=== PATIENT | male | born 1950 | race Caucasian/White ===

== ENCOUNTER 2018-02-08 16:08 | Inpatient (IN) | payer MEDICARE, MEDICAID ==
[2018-02-08] VITALS (7 sets, daily range): BP systolic 122–168; BP diastolic 77–122; BMI 36.1
[~2018-02-08] VITALS: Ht 170.2 cm; Wt 99.5 kg
[2018-02-08] MEDS ORDERED: COMBIGAN OPHT DR5 ML EACH EYE (16:12)
[2018-02-08] MEDS ORDERED: BAYER CHEWABLE81 MG PO (16:12)
[2018-02-08] MEDS ORDERED: FISH OIL 1,0001 CA1 PO (16:13)
[2018-02-08] MEDS ORDERED: GLUCOTROL 5 MG T5 MG PO (16:13)
[2018-02-08] MEDS ORDERED: GLUCOPHAGE1000 MG PO (16:13)
[2018-02-08] MEDS ORDERED: VITAMIN B-121000 MCG PO (16:14)
[2018-02-08] MEDS ORDERED: DIOVAN320 MG PO (16:14)
[2018-02-08] MEDS ORDERED: ZOCOR40 MG PO (16:14)
[2018-02-08] MEDS ORDERED: MAXZIDE 75/501 TAB PO (16:14)
[2018-02-08] MEDS ORDERED: ATIVAN1 MG PO (16:15)
[2018-02-08] MEDS ORDERED: BUPROPION HCL100 M1 PO (16:15)
[2018-02-08] MEDS ORDERED: HALDOL5 MG PO (16:15)
[2018-02-08 16:44] LABS: BASOPHILS 0.1 % (0-2); EOSINOPHILS 0.7 % (0-7); HEMATOCRIT 41.8 % (42.0-54.0); HEMOGLOBIN 14.2 g/dL (13.5-17.5); IMMATURE GRANULOCYTES 0.4 % (0-5); LYMPHOCYTES 17.7 % (15-50); MCH 30.3 pg (26.0-34.0); MCV 89.1 fL (80.0-100.0); MEAN PLATELET VOLUME 9.9 fL (7.4-10.4); MONOCYTES 8.1 % (2-11); PLATELET COUNT 314 10x3/uL (130-400); RBC 4.69 10x6/uL (4.20-6.10); WBC 16.5 10x3/uL (4.8-10.8)
[2018-02-08 17:03] LABS: ANION GAP 20.9 mmol/L (8-16); APTT 24.3 SECONDS (22.8-39.4); BILIRUBIN - TOTAL 0.43 mg/dL (0.2-1.3); CALCIUM 9.7 mg/dL (8.5-10.1); CARBON DIOXIDE 20.3 mmol/L (21.0-32.0); INR 0.93 (0.85-1.17); POTASSIUM - SERUM 5.2 mmol/L (3.5-5.1)
[2018-02-08 17:11] LABS: MAGNESIUM - SERUM 1.6 mg/dL (1.8-2.4)
--- NOTE | 2018-02-08 19:29 | NUR ---
IV INFUSING WELL. IV SITE WNL.
--- NOTE | 2018-02-08 19:45 | NUR ---
ICU BED BEING CLEANED AT THIS TIME
--- NOTE | 2018-02-08 20:05 | NUR ---
REPORT CALLED TO ICU AT THIS TIME. REPORT GIVEN TO PARVIN. PT BS 182. PT ALERT AND ORIENTED. IV LEVAQUIN COMPLETED AT THIS TIME. IV FLUSHED WELL. IV SITE WNL
--- NOTE | 2018-02-08 20:40 | NUR ---
PT RECEIVED TO UNIT VIA STRETCHER FROM ER WITH ER NURSE. PT TRANSFERED TO ICU BED. PT TOLERATED WELL. PT CONNECTED TO MONITOR. O2 VIA N/C AT 2LPM WITH SPO2 98%. PT WITH SOME CONFUSION, CAN STATE NAME, BIRTHDATE, PRESIDENT, AND THAT HE WAS IN THE HOSPITAL, CONFUSED TO AGE, AND YEAR. LUNGS SOUND CLEAR THEN PT HAS A STRIDER TYPE SOUND DURING COUGH. PT DENIES DIFFICULTY BREATHING DURING THOSE EPISODES AND SPO2 STAYS 97% TO 99%. PT OBEYS COMMANDS. MAXIMAL ASSIST WITH TURNING FOR LINEN CHANGES. PT WITH EYES OPEN AT THIS TIME. WILL CONTINUE TO OBSERVE.
--- NOTE | 2018-02-08 21:26 | NUR ---
DR. ANTONY NOTIFIED OF PATIENTS DIASTOLIC BP BEING GREATER THAN 100. NOTIFIED OF BP 144/120 AT THIS TIME. 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
--- NOTE | 2018-02-08 23:14 | NUR ---
PT WITH EYES OPEN. RESPIRATORY THERAPIST AT BEDSIDE FOR BREATHING TREATMENT. NO S/S OF DISTRESS. CALL LIGHT IN REACH. WILL CONTINUE TO OBSERVE.
[2018-02-09] VITALS (24 sets, daily range): BP systolic 117–162; BP diastolic 47–124
--- NOTE | 2018-02-09 01:36 | NUR ---
PT INCONTINENT OF BLADDER WITH PERICARE PROVIDED AND BED LINENS CHANGED. PT TOLERATED WELL. CALL LIGHT IN REACH. WILL CONTINUE TO OBSERVE.
--- NOTE | 2018-02-09 03:00 | NUR ---
PT WITH EYES CLOSED AND CHEST RISING. EASILY AWOKEN. REASSESSMENT COMPLETED, SEE FLOW SHEET. WILL CONTINUE TO OBSERVE.
[2018-02-09 04:17] LABS: CARBON DIOXIDE 22.3 mmol/L (21.0-32.0); MAGNESIUM - SERUM 1.4 mg/dL (1.8-2.4)
[2018-02-09 04:20] LABS: POTASSIUM - SERUM 4.3 mmol/L (3.5-5.1)
[2018-02-09 04:23] LABS: BASOPHILS 0 % (0-2); EOSINOPHILS 0 % (0-7); HEMATOCRIT 39.6 % (42.0-54.0); HEMOGLOBIN 13.4 g/dL (13.5-17.5); IMMATURE GRANULOCYTES 0.3 % (0-5); LYMPHOCYTES 6.5 % (15-50); MCH 30.2 pg (26.0-34.0); MCHC 33.8 g/dL (31.0-37.0); MCV 89.4 fL (80.0-100.0); MEAN PLATELET VOLUME 9.7 fL (7.4-10.4); MONOCYTES 1.5 % (2-11); NEUTROPHILS 91.7 % (40-80); PLATELET COUNT 282 10x3/uL (130-400); RBC 4.43 10x6/uL (4.20-6.10); RDW 13.1 % (11.5-14.5)
--- NOTE | 2018-02-09 05:35 | NUR ---
BATH GIVEN WITH COMPLETE LINEN CHANGE. PT TOLERATED WELL. CONTINUES SEDATION AND VENT. WILL CONTINUE TO OBSERVE.
--- NOTE | 2018-02-09 05:45 | NUR ---
PT RESTING WITH EYES CLOSED AND CHEST RISING. EASILY AWOKEN. EMPTIED URINAL. CALL LIGHT IN REACH. WILL CONTINUE TO OBSERVE.
--- NOTE | 2018-02-09 06:55 | NUR ---
WAS CALLED AND INFORMED OF MAG LEVEL OF 1.4. ELECTROLYTE PROTOCOL ORDERED. WILL TREAT. CALL LIGHT IN REACH. WILL CONTINUE TO OBSERVE.
--- NOTE | 2018-02-09 11:00 | NUR ---
NO CHANGE NOTED
--- NOTE | 2018-02-09 15:00 | NUR ---
NO CHANGE NOTED
--- NOTE | 2018-02-09 19:33 | NUR ---
REPORT RECEIVED. PT WITH EYES OPEN WATCHING FOOTBALL GAME. NO COMPLAINTS OF PAIN. PT ON ROOM AIR, TOLERATING WELL. OCCASIONAL COUGH NON PRODUCTIVE. CALL LIGHT IN REACH. WILL CONTINUE TO OBSERVE.
--- NOTE | 2018-02-09 21:50 | NUR ---
PT WITH EYES CLOSED AND EASILY AWOKEN. RECEIVED MEDICATIONS PER APR. TOLERATED WELL. CALL LIGHT IN REACH. WILL CONTINUE TO OBSERVE.
--- NOTE | 2018-02-09 23:20 | NUR ---
PT REASSESSMENT COMPLETED, SEE FLOW SHEET. REPOSITIONING PROVIDED. WILL CONTINUE TO OBSERVE.
[2018-02-10] VITALS (11 sets, daily range): BP systolic 98–156; BP diastolic 64–103
--- NOTE | 2018-02-10 01:40 | NUR ---
PT WITH EYES CLOSED AND CHEST RISING. NO S/S OF DISTRESS. OCCASIONAL COUGH NOTED. CALL LIGHT IN REACH. WILL CONTINUE TO OBSERVE.
--- NOTE | 2018-02-10 03:34 | NUR ---
PT WITH EYES CLOSED AND CHEST RISING. EASILY AWOKEN. REASSESSMENT COMPLETED, SEE FLOW SHEET. CALL LIGHT IN REACH. WILL CONTINUE TO OBSERVE.
[2018-02-10 04:28] LABS: BASOPHILS 0.1 % (0-2); EOSINOPHILS 0 % (0-7); HEMATOCRIT 39.7 % (42.0-54.0); HEMOGLOBIN 13.7 g/dL (13.5-17.5); IMMATURE GRANULOCYTES 0.3 % (0-5); LYMPHOCYTES 6.1 % (15-50); MCH 30.9 pg (26.0-34.0); MCHC 34.5 g/dL (31.0-37.0); MCV 89.4 fL (80.0-100.0); MEAN PLATELET VOLUME 9.9 fL (7.4-10.4); MONOCYTES 2.2 % (2-11); NEUTROPHILS 91.3 % (40-80); PLATELET COUNT 299 10x3/uL (130-400); RBC 4.44 10x6/uL (4.20-6.10); RDW 13.2 % (11.5-14.5); WBC 15.8 10x3/uL (4.8-10.8)
[2018-02-10 04:42] LABS: ANION GAP 14.8 mmol/L (8-16); CALCIUM 9.2 mg/dL (8.5-10.1); CARBON DIOXIDE 27.8 mmol/L (21.0-32.0); CREATININE - SERUM 1.9 mg/dL (0.6-1.3); PHOSPHOROUS 3.5 mg/dL (2.5-4.9)
[2018-02-10 05:00] LABS: MAGNESIUM - SERUM 1.9 mg/dL (1.8-2.4); POTASSIUM - SERUM 3.6 mmol/L (3.5-5.1)
--- NOTE | 2018-02-10 06:31 | NUR ---
PT WITH EYES OPEN. SMALL URINE INCONTINENCE NOTED WITH PERICARE AND PAD CHANGED. AM MEDICATIONS GIVEN. WILL CONTINUE TO OBSERVE.
--- NOTE | 2018-02-10 07:24 | NUR ---
REPORT RECIEVED. ASSESSEMENT COMPLETE PER FLOW SHEET. VSS. PT REPOSITIONED ON L SIDE DENIES NEEDS WILL CONTINUE TO MONITOR
--- NOTE | 2018-02-10 19:55 | NUR ---
LYING IN BED. ALERT. ORIENTED TO SELF ONLY. CONFUSED. SLOW TO ANSWER QUESTIONS IF ANSWERS AT ALL. BED ALARM ON. RESP NONLABORED. O2 @ 2L/NC. NONPROD COUGH NOTED. USES URINAL. NO EDEMA NOTED. BRUISE TO RT HAND. SALINE LOCK NOTED TO LT AC. NO DISTRESS. SR ELEVATED X 2. CL IN REACH.
[2018-02-11 04:00] VITALS: BP 166/76
[2018-02-11 05:51] LABS: HEMATOCRIT 40.9 % (42.0-54.0); HEMOGLOBIN 14.2 g/dL (13.5-17.5); MCH 30.9 pg (26.0-34.0); MCHC 34.7 g/dL (31.0-37.0); MCV 88.9 fL (80.0-100.0); MEAN PLATELET VOLUME 9.8 fL (7.4-10.4); PLATELET COUNT 335 10x3/uL (130-400); RDW 13.4 % (11.5-14.5); WBC 20.2 10x3/uL (4.8-10.8)
[2018-02-11 06:04] LABS: ANION GAP 20.2 mmol/L (8-16); CALCIUM 9.2 mg/dL (8.5-10.1); CARBON DIOXIDE 25.1 mmol/L (21.0-32.0); CREATININE - SERUM 2.1 mg/dL (0.6-1.3); POTASSIUM - SERUM 3.3 mmol/L (3.5-5.1)
[2018-02-11 08:01] LABS: LYMPHOCYTES 7 % (15-50); MONOCYTES 2 % (2-11); NEUTROPHILS 88 % (40-80); PLATELET ESTIMATE NORMAL
[2018-02-11 08:02] LABS: ANISOCYTOSIS OCC
--- NOTE | 2018-02-11 08:11 | NUR ---
AWAKE AND ALERT. ORIENTED X3. NO C/O AT THIS TIME. LUNGS ARE CLEAR BUT DIMINISHED THROUGHOUT. NON PRODUCTIVE COUGH NOTED. SKIN IS INTACT WITHOUT REDNESS. INCONTINENT OF URNIE. SKIN CARE PER STAFF. SPECIMEN COLLECTED AND SENT TO LAB. REPOSITIONED IN BED FOR COMFORT. O2 SATS LOW. O2 INCREASED TO 2L NC SAT UP TO 94. WILL MONITOR. SITTING UP IN BED EATING BREAKFAST.
[2018-02-11 08:37] VITALS: BP 111/78
--- NOTE | 2018-02-11 10:00 | NUR ---
RESTING QUIETLY IN BED. DENIES NEEDS.
--- NOTE | 2018-02-11 10:51 | MORECARE ---
CASE MANAGEMENT DISCHARGE SUMMARY PATIENT: MILAD BAUER UNIT: [id number] ADM DATE: 02/08/18 AGE: 67 : 52 SEX: M ROOM/BED: D.2211 AUTHOR: BETTY HERNANDEZ PHYSICIAN: REFERRING PHYSICIAN: MILENA ANTONY MD DATE OF SERVICE: 02/11/18 Discharge Plan Patient Name: MILAD BAUER [facility] [facility] 1950 Planned Disposition: Nursing [facility] Cert Anticipated Discharge Date: Discharge Date: Expected LOS: Initial Reviewer: [email or web address] Initial Review Date: 02/08/2018 Generated: 02/11/18 11:51 am Patient Name: MILAD BAUER Page [id number] at 1051 All edits/amendments must be made on the electronic document DICTATION DATE: 02/11/18 1051 GOVERNMENT EMPLOYEE: CARI 02/11/18 1051 RPT#: [id number] DC DATE: STATUS: ADM IN [facility] [address] [place] [address] END OF REPORT
--- NOTE | 2018-02-11 10:58 | MORECARE ---
CASE MANAGEMENT DISCHARGE SUMMARY PATIENT: MILAD BAUER UNIT: [id number] ADM DATE: 02/08/18 AGE: 67 : 52 SEX: M ROOM/BED: D.2211 AUTHOR: BETTY HERNANDEZ PHYSICIAN: REFERRING PHYSICIAN: MILENA ANTONY MD DATE OF SERVICE: 02/11/18 Discharge Plan Patient Name: MILAD BAUER Facility: [facility]:[place] : 1950 Planned Disposition: Nursing Facility [facility] Cert Anticipated Discharge Date: Discharge Date: Expected LOS: Initial Reviewer: [email or web address] Initial Review Date: 02/08/2018 Generated: 02/11/18 11:58 am Comments DCP- Discharge Planning Updated by [email or web address]: Susannah Quiroz on 02/11/18 9:[address] Patient Name: MILAD BAUER Admission Status: ER Accout number: [id number] Admission Date: 02-08-2018 : 1950 Admission Diagnosis: Attending: MILENA ANTONY Current LOS: 3 Anticipated DC Date: Planned Disposition: Nursing Facility [facility] Cert Primary Insurance: MEDICARE A & B Discharge Planning Comments: PATIENT IS CONFUSED, CM CALLED AND TALKED TO CHRISTIAN ENGEL AT [facility] AT [phone]. HE IS IN A RETIREMENT MEDICAID BED AT THEIR FACILITY AND WILL RETURN THERE UPON DISCHARGE. CM WILL FOLLOW AND ASSIST NEEDED WITH DC PLANNING/NEEDS. Helicopter Pilot Instructor: Susannah Quiroz DCPIA - Discharge Planning Initial Assessment Updated by [email or web address]: Susannah Quiroz on 02/11/18 10:53 am * Is the patient Alert and Oriented? No * PCP [facility] * Preadmission Environment Historic Sites Supervisor Long Term * Facility Name [facility]. [phone] [facility] * Additional services required to return to the preadmission environment? No * Can the patient safely return to the preadmission environment? Yes * Has this patient been hospitalized within the prior 30 days at any hospital? No Last DP export: 02/11/18 9:51 am Patient Name: MILAD BAUER Page 52400 at 1058 All edits/amendments must be made on the electronic document DICTATION DATE: 02/11/181057 CLERICAL METHODS ANALYST: CARI 02/11/18 1058 RPT#: [id number] DC DATE: STATUS: ADM IN [facility] [address] [place] [address] END OF REPORT
[2018-02-11 11:07] LABS: APPEARANCE SL CLDY (CLEAR); BACTERIA FEW /hpf (NONE SEEN); BILIRUBIN NEGATIVE (NEGATIVE); COLOR YELLOW (YELLOW); EPITHELIAL CELLS OCC /hpf (0-5); GLUCOSE 50 mg/dL (NEGATIVE); KETONE NEGATIVE (NEGATIVE); NITRITE NEGATIVE (NEGATIVE); PROTEIN TRACE mg/dL (NEGATIVE); RED CELLS - URINE 0-5 /hpf (0-5); SPECIFIC GRAVITY 1.015 (1.005-1.020); UROBILINOGEN NORMAL (NORMAL)
--- NOTE | 2018-02-11 12:00 | NUR ---
FSBS 202. GIVEN 4 UNITS REGULAR SUB Q PER SS.
[2018-02-11 12:10] VITALS: Ht 170.2 cm; Wt 99.5 kg
[2018-02-11 12:26] VITALS: BP 135/76
--- NOTE | 2018-02-11 13:57 | EC ---
PATIENT:MILAD BAUER DATE OF SERVICE: 02/08/18 SEX: M MEDICAL RECORD: [id number] DATE OF : [birth year] LOCATION:[facility] AGE OF PATIENT: 67 ADMISSION DATE: 02/08/18 REFERRING PHYSICIAN: INTERPRETING PHYSICIAN: TONEY KAM MD ECHOCARDIOGRAM REPORT ECHO CHARGES 4 ECHO COMPLETE Date: 02/09/18 CLINICAL DIAGNOSIS: CHF ECHOCARDIOGRAPHIC MEASUREMENTS (adult normal given) AC root (d.<3.7cm) 3.2 cm LV Septum d (<1.2 cm> 1.3 cm Valve Excursion 1.4 cm LV Septum (systole) 1.9 cm Left Atria (s.<4.0cm> 3.2 cm LVPW d(<1.2cm) 1.1 cm RV (d.<2.3cm) 3.5 cm LVPW (sytole) 1.2 cm LV diastole(<5.6CM) 4.7 cm MV E-F(>70mm/sec) cm LV systole 4.1 cm LVOT Diameter 1.9 cm MV exc.(>10mm) cm Est.ejection fraction (50-75%) % DOPPLER: LVIT cm/sec A 52 cm/sec E 44 cm/sec LA cm/sec RVSP 15.7 mmHg LVOT 104 cm/sec AOP1/2T m/s Asc. Ao 137 cm/sec RVOT 98 cm/sec RA cm/sec PA 154 cm/sec AV Gradient Peak 7.5 mmHg AV Mean 5.3 mmHg AV Area 1.7 cm MV Gradient Peak 1.5 mmHg MV Mean 1.0 mmHg MV Area cm COMMENTS: Farm Product Purchaser: Earlene TERRAZAS Wire Drawing Setter: [address] Dr[address] [place] TAPE# PACS Pericardial Effusion N DATE OF SERVICE: 02/10/2018 Adequate 2-D echo, color flow and spectral Doppler, M-mode Borderline LVH. LV internal dimension is normal. Wall motion is normal. EF is greater than or equal to 55%. Aortic valve is tricuspid. No evidence of stenosis by Doppler interrogation. Left atrium is normal. Mitral valve shows no prolapse. Trace MR. Right-sided chamber is grossly normal. Trace TR. TRANSINT:[id number] Voice Confirmation ID: [id number] DOCUMENT ID: [id number] ECHOCARDIOGRAM REPORT [id number] LIZETTE,MILAD KAM,TONEY Welch MD at 1357 CC: [id number] DICTATION DATE: 02/10/18 013 PRINCIPAL CONSULTING ENGINEER: 02/10/18 0716 ADM IN [facility] [address] [place] [id number]
[2018-02-11 17:21] VITALS: BP 117/78
--- NOTE | 2018-02-11 20:10 | NUR ---
AWAKE,ALERT.NO COMPLAINTS VOICED. RESP UNLABORED. HAS GURGLING SOUND IN THROAT. ENCOURAGED TO COUGH. YELLOW SPUTUM NOTED. O2 @ 3L PER NC ON. NO DISTRESS NOTED. SL TO LEFT HAND INTACT WITHOUT REDNESS OR EDEMA NOTED. CL IN REACH.
--- NOTE | 2018-02-11 21:40 | NUR ---
PATIENT FOUND WITH SOB. SPO2 @ 86 %. ENCOURAGED TO COUGH. YELLOW SPUTUM NOTED. SPO2 @ 92 AT THIS TIME.HOB RAISED TO MAKE BREATHING EASIER.PATIENT APPEARS TO BE IN DISTRESS AT THIS TIME. SPO2 @ 72% AND DROPING. RAPID RESPONSE CALLED AT THIS TIME. DR TOLBERT NOTIFIED. PATIENT TRANSPORTED TO ICU. ATTEMPTED TO CALL MR GODOY LISTED CONTACT. RECIEVED VOICE MAIL X 2. MESSAGE LEFT FOR RETURN CALL.
--- NOTE | 2018-02-11 22:30 | NUR ---
RAPID RESPONSE CALLED AT 215. ON ARRIVAL PT IS LETHARGIC, CYANOTIC AND MOTTLED. RT BEGAN BAGGING PT. ABD DRAWN. TRANSPORTED PT TO ICU RM 2308. MONITOR EQUIP ESTABLISHED. SINUS FEDERICO PER CM. PT SOON IN CARDIAC ARREST. ASYSTOLE ON MONITOR. CPR INITIATED AND CODE BLUE CALLED. SEE CODE SHEET. TIME OF 22:28.
--- NOTE | 2018-02-12 17:45 | MORECARE ---
CASE MANAGEMENT DISCHARGE SUMMARY PATIENT: MILAD BAUER UNIT: [id number] ADM DATE: 02/08/18 AGE: 67 : 52 SEX: M ROOM/BED: D.2308 AUTHOR: BETTY HERNANDEZ PHYSICIAN: REFERRING PHYSICIAN: MILENA ANTONY MD DATE OF SERVICE: 02/12/18 Discharge Plan Patient Name: MILAD BAUER Facility: [facility]:[place] : 1950 Planned Disposition: Nursing Facility [facility] Cert Anticipated Discharge Date: Discharge Date: 02/11/2018 Expected LOS: Initial Reviewer: [email or web address] Initial Review Date: 02/08/2018 Generated: 02/12/18 6:45 pm Comments DCP- Discharge Planning Updated by [email or web address]: Susannah Quiroz on 02/11/18 9:[address] Patient Name: MILAD BAUER Admission Status: ER Accout number: [id number] Admission Date: 02-08-2018 : 1950 Admission Diagnosis: Attending: MILENA ANTONY Current LOS: 3 Anticipated DC Date: Planned Disposition: Nursing Facility [facility] Cert Primary Insurance: MEDICARE A & B Discharge Planning Comments: PATIENT IS CONFUSED, CM CALLED AND TALKED TO CHRISTIAN ENGEL AT [facility] AT [phone]. HE IS IN A PRISON MEDICAID BED AT THEIR FACILITY AND WILL RETURN THERE UPON DISCHARGE. CM WILL FOLLOW AND ASSIST NEEDED WITH DC PLANNING/NEEDS. Public Health Social Worker: Susannah Quiroz DCPIA - Discharge Planning Initial Assessment Updated by [email or web address]: Susannah Quiroz on 02/11/18 10:53 am * Is the patient Alert and Oriented? No * PCP [facility] * Preadmission Environment Intermediate Halfway * Facility Name [facility]. [phone] [facility] * Additional services required to return to the preadmission environment? No * Can the patient safely return to the preadmission environment? Yes * Has this patient been hospitalized within the prior 30 days at any hospital? No Last DP export: 02/11/18 9:58 am Patient Name: MILAD BAUER Page [id number] at 1745 All edits/amendments must be made on the electronic document DICTATION DATE: 02/12/181743 WELDER/FABRICATOR: CARI 02/12/181743 RPT#: [id number] DC DATE:02/11/18 STATUS: DIS IN [facility] [address] [place] [address] END OF REPORT
== END 2018-02-11 23:00 | DRG 177 ==
LOC: D.ER 16:08 → D.ICU 18:05 → D.MS 02-10 09:18 → D.ICU 02-11 21:00
PROVIDERS: Emergency Medicine; ADMIT Internal Medicine Nephrology
PROC: 0BH17EZ Insertion of Endotracheal Airway into Trachea, Via Natural or Artificial Opening (ICD-10-PCS; principal; 2018-02-11)
PROC: 5A2204Z Restoration of Cardiac Rhythm, Single (ICD-10-PCS; 2018-02-11)
PROC: 5A2204Z Restoration of Cardiac Rhythm, Single (ICD-10-PCS; 2018-02-11)
DX: J69.0 Pneumonitis due to inhalation of food and vomit (principal); J96.01 Acute respiratory failure with hypoxia; I13.0 Hypertensive heart and chronic kidney disease with heart failure and stage 1 through stage 4 chronic kidney disease, or unspecified chronic kidney disease; N17.9 Acute kidney failure, unspecified; E87.2 Acidosis; I47.2 Ventricular tachycardia; E11.22 Type 2 diabetes mellitus with diabetic chronic kidney disease; N18.9 Chronic kidney disease, unspecified; I50.9 Heart failure, unspecified; F32.9 Major depressive disorder, single episode, unspecified; F20.9 Schizophrenia, unspecified; D64.9 Anemia, unspecified; K21.9 Gastro-esophageal reflux disease without esophagitis; E87.5 Hyperkalemia; J45.909 Unspecified asthma, uncomplicated; E11.21 Type 2 diabetes mellitus with diabetic nephropathy; E83.42 Hypomagnesemia